=== PATIENT | female | born 1985 | race Caucasian/White ===

== ENCOUNTER 2017-07-25 12:17 | Emergency (ER) | payer SELFPAY ==
[~2017-07-25] VITALS: Ht 167.6 cm; Wt 88.6 kg
[2017-07-25 12:29] VITALS: BP 120/67
== END 2017-07-25 12:29 | disposition left against medical advice (07) ==
LOC: EMS 12:19
DX: Z53.21 Procedure and treatment not carried out due to patient leaving prior to being seen by health care provider (principal)